=== PATIENT | male | born 1975 | race Caucasian/White ===

== ENCOUNTER 2017-05-08 05:45 | Emergency (ER) | payer OTHER ==
[2017-05-08 05:55] VITALS: RESP 18
--- NOTE | 2017-05-08 07:11 | XR ---
EXAM: XR Left Knee, 3 views CLINICAL HISTORY: Reason: Pain TECHNIQUE: Three views of the left knee. COMPARISON: 03/06/15 FINDINGS: Bones/joints: Osteopenia. No acute fracture. No dislocation. Soft tissues: Unremarkable. IMPRESSION: No acute findings or substantial change
--- NOTE | 2017-05-08 07:13 | ED ---
Extremity Problem HPI - General Chief complaint: Extremity Problem,Nontraumatic Stated complaint: Knee Pain Time Seen by Provider: 05/08/17 06:22 Source: patient Mode of arrival: ambulatory Limitations: no limitations - History of Present Illness Initial comments: This 41-year-old white male presents with a complaint of some left knee pain. This apparently has been fairly intermittent throughout his life. He states that it is worse over the past 3 days. 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 He denies any actual trauma. He states that he does stand on his feet for 10 hours a day at work and is also fairly active. He states that it is more painful with straightening out his left leg. He has not tried any medications for it as of yet. He has not followed up with an orthopedic physician in years. No other complaints or modifying factors. - Related Data Home Medications Medication Instructions Recorded Confirmed No Known Home Medications [No 05/02/16 05/08/17 Known Home Medications] Allergies Allergy/AdvReac Type Severity Reaction Status Date / Time No Known Allergies Allergy Verified 05/08/17 05:54 Review of Systems ROS Statement: Those systems with pertinent positive or pertinent negative responses have been documented in the HPI. ROS Other: All systems not noted in ROS Statement are negative. Past Medical History Past Medical History: No Reported History History of Any Multi-Drug Resistant Organisms: None Reported Past Surgical History: Appendectomy, Orthopedic Surgery Past Psychological History: No Psychological Hx Reported Smoking Status: Current every day smoker Past Alcohol Use History: Occasional Past Drug Use History: None Reported General Exam Limitations: no limitations General appearance: alert, in no apparent distress Cardiovascular Exam: Present: regular rate Extremities exam: Present: normal inspection, full ROM, tenderness (There is some mild tenderness more over the medial aspect of the left knee.), other ( There is excellent movement of the left knee. There is a negative valgus, varus , Lockman, drawer, and Dave test.). Absent: joint swelling, calf tenderness Neurological exam: Present: alert, oriented X3. Absent: motor sensory deficit Psychiatric exam: Present: normal affect, normal mood Skin exam: Present: other (There is a scar from his surgical procedure over the medial aspect of the left knee.) Course Vital Signs 05/08/17 05:52 Temperature 97.9 F Pulse Rate 85 Respiratory 18 Rate Blood Pressure 146/83 O2 Sat by Pulse 97 Oximetry Medical Decision Making - Medical Decision Making The patient was seen and examined. An x-ray was taken of the left knee. No acute processes noted per my review of final radiologic review pending. The exact cause of his pain is not definitively determined. There is certainly is a degree of chronicity. It is felt as though he would benefit from following up with an orthopedic physician and likely an MRI scan. He was previously referred to Dr. Reyes but apparently never followed up. I will refer him once again to his practice. Is recommended that he utilizes Motrin as needed for pain and inflammation. He is requesting a work note. He leaves in no distress. Disposition Clinical Impression: Left knee pain Disposition: HOME SELF-CARE Condition: Good Instructions: Knee Pain (ED) Additional Instructions: Please use motrin or alleve for pain and inflammation. Referrals: None,Stated [Primary Care Provider] - 1-2 days Jamal Reyes MD [STAFF PHYSICIAN] - 05/12/17 Time of Disposition: 07:12
[2017-05-08 07:33] VITALS: BP 142/80; PULSE 82; TEMP 98
== END 2017-05-08 07:32 | disposition home or self-care (01) ==
LOC: EC 05:45
DX: M25.562 Pain in left knee (principal); F17.200 Nicotine dependence, unspecified, uncomplicated; Z87.39 Personal history of other diseases of the musculoskeletal system and connective tissue; Z98.890 Other specified postprocedural states
CPT/HCPCS: 99283

== ENCOUNTER 2017-07-10 13:19 | Emergency (ER) | payer OTHER ==
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
[2017-07-10] MEDS ORDERED: KETOROLAC 60 MG/2 ML VIAL IM STA (15:09)
[2017-07-10] MEDS ORDERED: cloNIDine HCL 0.2 MG TAB PO STA (15:47)
[2017-07-10 15:52] VITALS: BP 145/95; PULSE 74; RESP 16
[2017-07-10 16:20] VITALS: TEMP 98
== END 2017-07-10 16:19 | disposition home or self-care (01) ==
LOC: EC 13:19
DX: S43.401A Unspecified sprain of right shoulder joint, initial encounter (principal); I10 Essential (primary) hypertension; F17.200 Nicotine dependence, unspecified, uncomplicated; Z98.890 Other specified postprocedural states; Z53.8 Procedure and treatment not carried out for other reasons; V17.0XXA Pedal cycle driver injured in collision with fixed or stationary object in nontraffic accident, initial encounter; Y93.55 Activity, bike riding; Y92.481 Parking lot as the place of occurrence of the external cause
CPT/HCPCS: 71101; 73000; 73030; 99283; 96372; J1885

== ENCOUNTER 2017-08-12 12:53 | Emergency (ER) | payer OTHER ==
[2017-08-12 13:20] VITALS: BP 142/91; PULSE 91; RESP 18; TEMP 97
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
== END 2017-08-12 14:05 | disposition home or self-care (01) ==
LOC: EC 12:53
DX: M25.561 Pain in right knee (principal); M25.562 Pain in left knee; F17.200 Nicotine dependence, unspecified, uncomplicated; Z98.890 Other specified postprocedural states; V18.9XXA Unspecified pedal cyclist injured in noncollision transport accident in traffic accident, initial encounter
CPT/HCPCS: 99283

== ENCOUNTER 2017-11-12 18:19 | Emergency (ER) | payer OTHER ==
[2017-11-12 18:29] VITALS: BP 159/94; PULSE 82; RESP 20; TEMP 97.8
[2017-11-12] MEDS ORDERED: SODIUM CHLORIDE 0.9% 500 ML IV STA (18:34)
[2017-11-12] MEDS ORDERED: RX INFO: IV CONTRAST WAS GIVEN 1 EACH MISC MISCELLANE PRN (18:34)
--- NOTE | 2017-11-12 18:40 | ED ---
General Adult HPI - General Chief complaint: Dental/Oral Stated complaint: DENTAL PAIN X 1 MONTH Time Seen by Provider: 11/12/17 18:30 Source: patient, RN notes reviewed Mode of arrival: ambulatory Limitations: no limitations - History of Present Illness Initial comments: 40-year-old male presents to the emergency Department chief complaint of right- sided dental pain. Patient states this started about a month ago he was seen here on antibiotics and seemed to improve. He states he does not have insurance is unable to follow-up. Patient states that then they came back worse last night. He states he has pain to the upper jaw he also has some bulging of the inside of the lower jaw. He denies any fever chills he is able to open and close mouth no radiation into the neck. They're concerned due to his continued pain so he thought that he should be evaluated.Patient denies any recent fever, chills, shortness of breath, chest pain, back pain, abdominal pain , nausea vomiting, numbness or tingling, dysuria or hematuria, constipation or diarrhea, headaches or visual changes, or any other current symptoms. - Related Data Previous Rx's Medication Instructions Recorded Ibuprofen [Motrin] 600 mg PO Q6HR PRN #20 tab 07/10/17 Hydrocodone/Acetaminophen [[place] 1 each PO Q6HR PRN #20 tab 10/04/17 5-325] Ibuprofen 800 mg PO Q6HR PRN #20 tablet 10/04/17 Penicillin V Potassium [Pen Vee K] 500 mg PO Q6HR #40 tablet 10/04/17 Clindamycin [Cleocin] 450 mg PO Q8HR #90 capsule 11/12/17 Ibuprofen [Motrin] 600 mg PO Q6HR PRN #20 tab 11/12/17 Allergies Allergy/AdvReac Type Severity Reaction Status Date / Time No Known Allergies Allergy Verified 11/12/17 18:29 Review of Systems ROS Statement: Those systems with pertinent positive or pertinent negative responses have been documented in the HPI. ROS Other: All systems not noted in ROS Statement are negative. Past Medical History Past Medical History: No Reported History History of Any Multi-Drug Resistant Organisms: None Reported Past Surgical History: Appendectomy, Orthopedic Surgery Additional Past Surgical History / Comment(s): tumor removal of LT knee Past Psychological History: No Psychological Hx Reported Smoking Status: Current every day smoker Past Alcohol Use History: Occasional Past Drug Use History: None Reported General Exam Limitations: no limitations General appearance: alert, in no apparent distress Eye exam: Present: normal appearance, PERRL, EOMI. Absent: scleral icterus, conjunctival injection, periorbital swelling ENT exam: Present: other (patient does appear to have an bulging mass on the inside of the right lower jaw that is firm to touch) Neck exam: Present: normal inspection. Absent: tenderness, meningismus, lymphadenopathy Respiratory exam: Present: normal lung sounds bilaterally. Absent: respiratory distress, wheezes, rales, rhonchi, stridor Cardiovascular Exam: Present: regular rate, normal rhythm, normal heart sounds. Absent: systolic murmur, diastolic murmur, rubs, gallop, clicks Neurological exam: Present: alert, oriented X3 Psychiatric exam: Present: normal affect, normal mood Skin exam: Present: warm, dry, intact, normal color. Absent: rash Course Vital Signs 11/12/17 18:26 Temperature 97.8 F Pulse Rate 82 Respiratory 20 Rate Blood Pressure 159/94 O2 Sat by Pulse 98 Oximetry Medical Decision Making - Medical Decision Making 42-year-old male presents emergency department with a chief complaint of right- sided jaw pain.this time CAT scan lab work was reviewed. We did discuss results. We discussed follow-up with a dentist. Discussed return parameters all questions. Patient stated that he understood and he is agreement this plan. All questions have been answered. He will be discharged - Lab Data Result diagrams: 11/12/17 18:45 11/12/17 18:45 Lab Results 11/12/17 11/12/17 Range/Units 18:45 18:45 WBC 7.5 (3.8-10.6) k/uL RBC 5.02 (4.30-5.90) m/uL Hgb 15.3 (13.0-17.5) gm/dL Hct 46.8 (39.0-53.0) % MCV 93.1 (80.0-100.0) fL MCH 30.4 (25.0-35.0) pg MCHC 32.7 (31.0-37.0) g/dL RDW 14.1 (11.5-15.5) % Plt Count 229 (150-450) k/uL Neutrophils % 56 % Lymphocytes % 32 % Monocytes % 6 % Eosinophils % 3 % Basophils % 1 % Neutrophils # 4.2 (1.3-7.7) k/uL Lymphocytes # 2.4 (1.0-4.8) k/uL Monocytes # 0.5 (0-1.0) k/uL Eosinophils # 0.3 (0-0.7) k/uL Basophils # 0.1 (0-0.2) k/uL Sodium 140 (137-145) mmol/L Potassium 4.9 (3.5-5.1) mmol/L Chloride 104 (98-107) mmol/L Carbon Dioxide 27 (22-30) mmol/L Anion Gap 9 mmol/L BUN 11 (9-20) mg/dL Creatinine 0.81 (0.66-1.25) mg/dL Est GFR (MDRD) Af Amer >60 (>60 ml/min/1.73 sqM) Est GFR (MDRD) Non-Af >60 (>60 ml/min/1.73 sqM) Glucose 125 H (74-99) mg/dL Calcium 9.8 (8.4-10.2) mg/dL Total Bilirubin 0.6 (0.2-1.3) mg/dL AST 25 (17-59) U/L ALT 35 (21-72) U/L Alkaline Phosphatase 79 (38-126) U/L Total Protein 7.5 (6.3-8.2) g/dL Albumin 4.7 (3.5-5.0) g/dL - Radiology Data Radiology results: report reviewed, image reviewed Disposition Clinical Impression: Toothache Disposition: HOME SELF-CARE Condition: Stable Instructions: Toothache (ED) Additional Instructions: Please use medication as discussed. Please follow up with family doctor if symptoms have not improved over the next two days. Please return to the emergency room if your symptoms increase or worsen or for any other concerns. [facility] [facility], [place] [address] [phone] (existing clients only) For new clients: [phone] 1st consult: $50 (includes Xrays) Usually 30% less then private dentist for visits after. [employer] Have to pay $50 for Xrays anmd rest is covered. [phone] Prescriptions: Clindamycin [Cleocin] 450 mg PO Q8HR #90 capsule Ibuprofen [Motrin] 600 mg PO Q6HR PRN #20 tab PRN Reason: Pain Referrals: Dominique Kat III, MD [STAFF PHYSICIAN] - 1-2 days Time of Disposition: 19:28
[2017-11-12] MEDS ORDERED: KETOROLAC 30 MG/ML 1 ML VIAL IVP STA (18:47)
[2017-11-12 18:52] LABS: Basophils # (A) 0.1 k/uL (0-0.2); Basophils % (A) 1 %; Eosinophils # (A) 0.3 k/uL (0-0.7); Eosinophils % (A) 3 %; HCT 46.8 % (39.0-53.0); HGB 15.3 gm/dL (13.0-17.5); Lymphocytes # (A) 2.4 k/uL (1.0-4.8); Lymphocytes % (A) 32 %; MCH 30.4 pg (25.0-35.0); MCHC 32.7 g/dL (31.0-37.0); MCV 93.1 fL (80.0-100.0); Mean Platelet Volume 7.4; Monocytes # (A) 0.5 k/uL (0-1.0); Monocytes % (A) 6 %; Neutrophils # (A) 4.2 k/uL (1.3-7.7); Neutrophils % (A) 56 %; Platelet Count 229 k/uL (150-450); RBC 5.02 m/uL (4.30-5.90); RDW 14.1 % (11.5-15.5); WBC 7.5 k/uL (3.8-10.6)
[2017-11-12 19:02] LABS: ALT 35 U/L (21-72); AST 25 U/L (17-59); Albumin 4.7 g/dL (3.5-5.0); Alkaline Phosphatase 79 U/L (38-126); Anion Gap 9 mmol/L; Blood Urea Nitrogen 11 mg/dL (9-20); Calcium 9.8 mg/dL (8.4-10.2); Carbon Dioxide 27 mmol/L (22-30); Chloride 104 mmol/L (98-107); Glucose 125 mg/dL (74-99); Potassium 4.9 mmol/L (3.5-5.1); Sodium 140 mmol/L (137-145); Total Bilirubin 0.6 mg/dL (0.2-1.3); Total Protein 7.5 g/dL (6.3-8.2)
--- NOTE | 2017-11-12 19:24 | CT ---
EXAMINATION TYPE: CT soft tissue neck w con DATE OF EXAM: 11/12/2017 7:07 PM COMPARISON: NONE HISTORY: Right sided mouth pain. Bump to gums behind teeth on lower jaw. CT DLP: 344.5 mGycm Automated exposure control for dose reduction was used. CONTRAST: CT scan of the neck is performed following with IV Contrast, patient injected with 100 mL of Omnipaqu e 300. Axial images are obtained, coronal and sagittal reformatted images are reviewed. FINDINGS: There is normal branching pattern of the great vessels on the aortic arch. Thyroid gland appears norm al. There is normal contrast opacification of the carotid arteries and jugular veins. There is normal contrast opacification of the vertebral arteries. Epiglottis appears normal. There is no evidence of a pharyngeal mass. The parotid glands are symmetric. Submandibular salivary glands are symmetric. Ma xilla and mandible appear intact. There is no evidence of an orbital mass. There is mild mucosal thic kening in ethmoid sinuses. There is minimal mucosal thickening in the sphenoid sinus. I see no eviden ce of cervical adenopathy. There is no sign of a mass associated with the right side of the mandible. IMPRESSION: Negative CT scan of the neck. Minimal ethmoid and sphenoid sinusitis.
== END 2017-11-12 19:33 | disposition home or self-care (01) ==
LOC: EC 18:19
DX: K08.89 Other specified disorders of teeth and supporting structures (principal); F17.200 Nicotine dependence, unspecified, uncomplicated
CPT/HCPCS: 36415; 80053; 85025; 87040; 70491; 99283; 96374; 96361; J1885; Q9967